=== PATIENT | female | born 1940 | race Caucasian/White ===

== ENCOUNTER 2016-10-26 20:00 | Observation (INO) | payer BC ==
--- NOTE | ~2016-10-26 | DS ---
Discharge Summary [facility] [address] [place]. [address] NAME: VIDAL CARL : 39 STATUS : ADM Crystal PAT#: [id number] AGE: 76 ADM/REG DATE : 10/26/16 MR#: [id number] REPORT SERV DATE: 10/28/16 DICTATED BY: VIC SAMPSON DATE: 10/28/16 REPORT STATUS : Draft TRANSCRIBED BY: MODL DATE: 10/28/16 ADMISSION DATE: 10/26/2016 DISCHARGE DATE: 10/28/2016 DIAGNOSES ON ADMISSION: 1. Neck pain, atypical chest pain on both sides of the chest. 2. Diabetes. 3. Situational depression. 4. Hypertension. DIAGNOSES ON DISCHARGE: 1. Atypical chest pain, present on admission, currently resolved. No evidence of chest pain. Jaw pain, now resolved, was related to recent 30 teeth extractions. Currently completely chest pain-free. 2. Diabetes mellitus type 2, controlled. 3. Hypothyroidism, controlled, on replacement. 4. Hypertension, controlled. 5. Situational depression/grief because of recent in the family. CONSULTANTS ON THE CASE: Product Management Analyst, Dr. Mckeon. IMAGING STUDIES: 1. Nuclear stress test negative for ischemia, low-risk. 2. Echocardiogram: Ejection fraction 60%. Normal echocardiogram. No valvular heart disease. HISTORY OF PRESENT ILLNESS: Briefly, this is a very pleasant 76-year-old female who was admitted by Dr. Jenkins for atypical neck discomfort and chest discomfort as well as bilateral jaw discomfort. Pain in her chest was on both sides and it was sharp. It has resolved next day as well as she said that it is most likely related to her jaw pain secondary to recent teeth extractions. She had 30 teeth extracted at once by dentist. She was doing well. She had a normal stress test as well as normal echocardiogram. Her bilateral lower extremity duplex ultrasound was negative for DVT and her oxygenation on room air was 96 and 97 on room air as well as she did not have any shortness of breath. She was doing very well. Blood pressure was 140/64, temperature 97.8, heart rate 63 to 64, respiratory rate 16, and oxygen saturation 96% on room air. She was doing very well. She did not have any chest pain, she was ready to be discharged, as well as diabetes mellitus was very well controlled. DISCHARGE DIAGNOSES: 1. Noncardiac chest pain, present on admission, resolved, likely related to teeth pain. 2. Diabetes, controlled. 3. Hypertension, controlled. 4. Grief because of the recent in the family, doing well. The patient will be discharged today and she will follow up with her primary care provider, nurse practitioner Brandi Suh. Everything was discussed with the patient and her sister. Discharge Summary [address] [facility] [place] [address] NAME: VIDAL CARL : 39 STATUS : ADM Crystal PAT#: [id number] AGE: 76 ADM/REG DATE : 10/26/16 MR#: [id number] REPORT SERV DATE: 10/28/16 DICTATED BY: VIC SAMPSON DATE: 10/28/16 REPORT STATUS : Draft TRANSCRIBED BY: MATT DATE: 10/28/16 This was observational discharge. I spent 45 minutes on discharge. MG/MATT Vic Sampson M.D. / [id number] CC: Mary Ann Bullard M.D.
--- NOTE | ~2016-10-26 | HP ---
History And Physical [id number] [place]. [address] NAME: VIDAL CARL : 39 STATUS : ADM Crystal PAT#: [id number] AGE: 76 ADM/REG DATE : 10/26/16 MR#: [id number] REPORT SERV DATE: 10/27/16 DICTATED BY: ALICIA JENKINS DATE: 10/27/16 REPORT STATUS : Draft TRANSCRIBED BY: MATT DATE: 10/27/16 DATE OF ADMISSION: 10/26/2016 CHIEF COMPLAINT: Chest pain, neck pain for multiple days. Transfer from [place]. HISTORY OF PRESENT ILLNESS: The patient is a 76-year-old female with past medical history of breast cancer, leg cancer, diabetes, hypertension, thyroid disease, who presents after having chest discomfort radiating to left arm, back, neck and occasional jaw line over the last 4- 5 days, not worsened, that has been dull, moderate severity with tingling type feeling. Does not have any relationship with exertion, relieved with rest. The patient reports that she has had tingling episodes of the jaw since removal of all of her teeth approximately couple weeks ago, but neck and chest dull pain has been going on for few days. There is no associated nausea, vomiting, or diarrhea. Does have overall slight weakness. No improving or worsening symptoms appreciated. Symptoms again began a few days ago and has been fairly constant and the patient comes in at the insistence of her sister. REVIEW OF SYSTEMS: A 10-point review of systems negative for that noted in the HPI. PAST MEDICAL HISTORY: Breast cancer, leg cancer, diabetes, hypertension, thyroid. SURGICAL HISTORY: Hysterectomy, eye surgery and removal of all teeth recently. ALLERGIES: NO KNOWN DRUG ALLERGIES. HOME MEDICATIONS: Artificial Tears, aspirin, vitamin D3, Lasix p.r.n. Neurontin, Levemir, Synthroid, Cozaar, metformin, Prilosec, Zocor, oxybutynin, metoprolol, Prilosec, Victoza. SOCIAL HISTORY: No smoking, alcohol, or illicits. 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 FAMILY HISTORY: Heart disease, cancer, diabetes, stroke. PHYSICAL EXAMINATION: VITAL SIGNS: Pulse 51, O2 sats 94% on room air. Weight 96.10 kg, blood pressure is 180s over 80s, O2 saturations 95% on room air. GENERAL: No acute distress. Calm, pleasant, well developed, well nourished. HEAD: Normocephalic, atraumatic. EYES: No scleral icterus. EOMI. ENT: Nares patent. Tongue midline. Moist mucous membranes. NECK: No JVD. Supple. No cervical tenderness or point tenderness on cervical spinal exam. LYMPH: No cervical or supraclavicular lymphadenopathy. CHEST: Equal chest expansion. RESPIRATORY: Clear to auscultation. No wheezes, rales, or rhonchi. CV: Mildly bradycardic. No rubs or gallops. ABDOMEN: Soft, nontender, nondistended. Bowel sounds positive. Central obesity. History And Physical [address] [address] NAME: VIDAL CARL : 39 STATUS : ADM Cyrstal PAT#: [id number] AGE: 76 ADM/REG DATE : 10/26/16 MR#: [id number] REPORT SERV DATE: 10/27/16 DICTATED BY: ALICIA JENKINS DATE: 10/27/16 REPORT STATUS : Draft TRANSCRIBED BY: MODNoy DATE: 10/27/16 EXTREMITIES: Moves all extremities x4. 1+ bilateral edema. HEME: No bleeding or bruising. PSYCH: Appropriate mood and affect. NEURO: Moves all extremities x4. Normal vocal suman. Symmetrical strength in upper and lower extremities bilaterally. EKG: Sinus bradycardia. No acute ST changes. Rate of 55, QTc 443. LABS: INR 1.12. Troponins negative x2. CK-MB within normal limits. Blood sugar 172. WBC count 5.0, H and H 10.5 and 31.1, platelets 263. Sodium 138, CPK 52, potassium 4.2, chloride 103, bicarb 28, calcium 9.5, glucose 180, BUN and creatinine 11 and 1. LFTs within normal limits. T bilirubin 0.4. IMAGING STUDIES: Chest x-ray low lung wesley volumes, otherwise no acute cardiopulmonary findings. ASSESSMENT AND PLAN: 1. Atypical chest pain. 2. Diabetes type 2. 3. Hypothyroidism. 4. Hypertension. 5. Leg cramps. 6. Situational depression. 7. Reflux. PLAN: 1. For atypical chest pain, we will check troponins, EKG, echocardiogram, stress test. Does have neck cervical pain, but no reproducible pain on full range of motion of neck at this time. Negative workup may require either chest wall workup versus cervical workup, although no reproducible pains acutely at this time. Jaw pain may also be resultant of recent tooth extractions and possible tic douloureux nerve discomfort. The patient is currently on gabapentin. 2. Diabetes type 2. Hold metformin medication. Decrease dosing secondary to decreased p.o. intake. Reassess in a.m. Restarting home insulin medications and diabetic medications. 3. Hypothyroidism, on replacement. 4. Hypertension, on beta paula p.r.n. 5. Leg cramps on gabapentin. 6. Situational depression. The patient does live alone, but does have good family support. Situational depression secondary to recent loss of her daughter approximately 1-1/2 half years ago. 7. Reflux, on medications. All questions answered with the patient and family at bedside. History And Physical [address] [address] NAME: VIDAL CARL : 39 STATUS : ADM Crystal PAT#: [id number] AGE: 76 ADM/REG DATE : 10/26/16 MR#: [id number] REPORT SERV DATE: 10/27/16 DICTATED BY: ALICIA JENKINS DATE: 10/27/16 REPORT STATUS : Draft TRANSCRIBED BY: MATT DATE: 10/27/16 MALLORY/MATT Alicia Jenkins MD / [id number]
--- NOTE | ~2016-10-26 | CN ---
Consultation Report [facility] [address] [place]. [address] NAME: SALLY KAUFFMAN : 39 STATUS : ADM Crystal PAT#: [id number] AGE: 76 ADM/REG DATE : 10/26/16 MR#: [id number] REPORT SERV DATE: 10/27/16 DICTATED BY: CONG MCKEON DATE: 10/27/16 REPORT STATUS : Draft TRANSCRIBED BY: MATT DATE: 10/27/16 CONSULTATION DATE OF CONSULTATION: Sally Kauffman is a 76-year-old female, who is transferred here with chest discomfort. HISTORY OF PRESENT ILLNESS: Mrs. Sally Kauffman has a previous history of diabetes, hypertension, and was seen with chest discomfort in 2011 and at that time, had mild nonobstructive coronary artery disease by cardiac catheterization. Wednesday, she was having her usual afternoon with low-level exercise and developed chest discomfort. She said it was across her chest that has been primarily in her neck. There was no associated nausea, vomiting, diaphoresis, shortness breath, palpitations, or presyncope. It persisted and got worse until yesterday when she saw her doctor. He noticed the blood pressure was elevated, and he gave her some nitroglycerin which improved the discomfort and blood pressure. The discomfort did have a strong pleuritic component to it. She was not significantly short of breath, however. REVIEW OF SYSTEMS: No previous exertional chest discomfort, symptoms of congestive heart failure, PND, CINTRON, lower extremity edema, change in weight, change in bowel habits, rash, fever, chills. Rest is negative. PAST MEDICAL HISTORY: 1. Insulin-dependent diabetes. 2. Nonobstructive coronary artery disease. 3. Chronic diastolic dysfunction. 4. Hypothyroidism, on replacement. 5. Breast cancer with metastatic disease in the past with lower extremity. SOCIAL HISTORY: She does not drink or smoke. 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 She does moderate walking. FAMILY HISTORY: Significant for coronary artery disease. PHYSICAL EXAMINATION: VITAL SIGNS: Blood pressure is 153/69, pulse is 50. GENERAL: Resting comfortably, nutritional status appears adequate. EYES: PERRLA. LUNGS: No labored use of accessory muscles. Without rales or wheezes. COR: PMI is not displaced. No thrills or heaves. NL S1 and S2. No S3, murmur, click or rub. PULSES: Carotids without bruits. ABD: +BS, nontender. EXT: No cyanosis, clubbing or edema. Consultation Report [place] [id number] [facility] [place]. [address] NAME: SALLY KAUFFMAN : 39 STATUS : ADM Crystal PAT#: [id number] AGE: 76 ADM/REG DATE : 10/26/16 MR#: [id number] REPORT SERV DATE: 10/27/16 DICTATED BY: CONG MCKEON DATE: 10/27/16 REPORT STATUS : Draft TRANSCRIBED BY: MATT DATE: 10/27/16 SKIN: No petechiae. NEURO: Alert and oriented. Does not appear anxious or depressed. LABORATORY EVALUATION: Cardiac enzymes are negative. EKG shows sinus tachycardia without acute changes. D-dimer is pending. ASSESSMENT: At this time, the discomfort is somewhat atypical, but she does have significant risk factors. A nuclear stress test has been ordered for the morning. MENDOZA/MATT Cong Mckeon M.D. / [id number] CC: Mary Ann Bullard RUTH
[~2016-10-26 20:00] MED LIST: ASA5GR PO; CLEOCIN300 MG PO; COZ50 PO; DIABETA5 PO; EVISTA60 PO; IBU800 PO; KLONO5 PO; KLOR-CON 1010 MEQ PO; NOVOLOGMIX SC; ONGLYZA5 MG PO; PRILO PO; SYNTHROID200 MCG PO
[2016-10-26] MEDS ORDERED: ASA5GR PO (21:04)
[2016-10-26] MEDS ORDERED: GLUCPH PO (21:05)
[2016-10-26] MEDS ORDERED: OXYBUTYNIN PO (21:05)
[2016-10-26] MEDS ORDERED: SYNTHROID137 MCG PO (21:06)
[2016-10-26] MEDS ORDERED: ZOCOR40 PO (21:06)
[2016-10-26] MEDS ORDERED: METOPROLOL 25MG PO (21:06)
[2016-10-26] MEDS ORDERED: NEUR100 PO (21:06)
[2016-10-26] MEDS ORDERED: PRILOSEC40 MG PO (21:07)
[2016-10-26] MEDS ORDERED: L20 PO (21:07)
[2016-10-26] MEDS ORDERED: COZAAR100 MG PO (21:07)
[2016-10-26] MEDS ORDERED: TEARS PURE OPH (21:08)
[2016-10-26] MEDS ORDERED: POTASSIUM RX PO (21:08)
[2016-10-26] MEDS ORDERED: LEVEMIR SC (21:09)
[2016-10-26] MEDS ORDERED: VITAMIN D31000 UNIT PO (21:10)
[2016-10-26] MEDS ORDERED: VICTOZA INJECTION SC (21:10)
[2016-10-26] MEDS ORDERED: MAXIMUM D3 PO (21:11)
[2016-10-26 23:05] LABS: BASOPHILS 0.3 %; BASOPHILS ABSOLUTE 0.02 10/3/uL (0.0-0.16); EOSINOPHILS 3.3 %; EOSINOPHILS ABSOLUTE 0.19 10/3/uL (0.0-0.53); HEMOGLOBIN 10.2 g/dL (12.0-16.0); IMMATURE GRANULOCYTES 0.2 %; IMMATURE GRANULOCYTES ABSOLUTE 0.01 10/3/uL (0.0-0.11); LYMPHOCYTES 31.3 %; LYMPHOCYTES ABSOLUTE 1.79 10/3/uL (0.67-4.30); MEAN CORPUS HGB CONC 32.9 g/dL (32.0-36.0); MEAN CORPUSCULAR HEMOGLOB 30.6 pg (26.0-34.0); MEAN CORPUSCULAR VOLUME 93.1 fL (80-100); MEAN PLATELET VOLUME 10.3 fL (9.2-13.0); MONOCYTES 8.9 %; MONOCYTES ABSOLUTE 0.51 10/3/uL (0.21-1.20); PLATELET COUNT 237 10/3/uL (150-400); RBC DISTRIBUTION WIDTH 13.3 % (12.0-16.0); RED CELL COUNT 3.33 10/6/uL (4.0-5.6); WHITE BLOOD CELLS 5.7 10/3/uL (4.5-10.5)
[2016-10-26 23:08] LABS: MANUAL DIFF NO %
[2016-10-26 23:29] LABS: ALBUMIN 3.2 G/DL (3.5-5.0); ALKALINE PHOSPHATASE 40 U/L (45-117); CHLORIDE, SERUM 105 MMOL/L (96-112); CO2 (CARBON DIOXIDE) 27 MMOL/L (24-34); CREATININE 1.14 MG/DL (0.55-1.02); GFR AFRICAN AMERICAN 54 ML/MIN (>=60); GFR NON AFRICAN AMERICAN 46 ML/MIN (>=60); GLOBULIN 3.2 G/DL (2.5-4.1); PHOSPHORUS, SERUM 3.3 MG/DL (2.5-4.5); SGOT(AST) 31 U/L (5-40); SGPT(ALT) 35 U/L (5-65); SODIUM, SERUM 141 MMOL/L (135-148); TOTAL BILIRUBIN 0.4 MG/DL (0-1.2); TOTAL PROTEIN 6.4 G/DL (6.0-8.5); TROPONIN I <0.02 NG/ML (<0.05)
[2016-10-26 23:31] LABS: BUN (BLOOD UREA NITROGEN) 12 MG/DL (6-23); GLUCOSE, SERUM 174 MG/DL (60-99)
[2016-10-27] MEDS ORDERED: DITRO5 PO (10:04)
[2016-10-27] MEDS ORDERED: LOP25 PO (10:04)
[2016-10-27] MEDS ORDERED: KLOR-CON M1010 MEQ PO (10:05)
[2016-10-28 09:37] LABS: BASOPHILS 0.5 %; BASOPHILS ABSOLUTE 0.02 10/3/uL (0.0-0.16); EOSINOPHILS 3.5 %; EOSINOPHILS ABSOLUTE 0.15 10/3/uL (0.0-0.53); HEMOGLOBIN 10.6 g/dL (12.0-16.0); IMMATURE GRANULOCYTES 0.2 %; IMMATURE GRANULOCYTES ABSOLUTE 0.01 10/3/uL (0.0-0.11); LYMPHOCYTES 34.1 %; LYMPHOCYTES ABSOLUTE 1.47 10/3/uL (0.67-4.30); MEAN CORPUS HGB CONC 33.1 g/dL (32.0-36.0); MEAN CORPUSCULAR HEMOGLOB 30.5 pg (26.0-34.0); MEAN CORPUSCULAR VOLUME 92.2 fL (80-100); MEAN PLATELET VOLUME 9.8 fL (9.2-13.0); MONOCYTES 10.2 %; MONOCYTES ABSOLUTE 0.44 10/3/uL (0.21-1.20); NEUTROPHILS 51.5 %; NEUTROPHILS ABSOLUTE 2.22 10/3/uL (2.02-8.40); PLATELET COUNT 251 10/3/uL (150-400); RBC DISTRIBUTION WIDTH 13.2 % (12.0-16.0); RED CELL COUNT 3.47 10/6/uL (4.0-5.6); WHITE BLOOD CELLS 4.3 10/3/uL (4.5-10.5)
[2016-10-28 09:43] LABS: MANUAL DIFF NO %
[2016-10-28 09:50] LABS: BUN (BLOOD UREA NITROGEN) 14 MG/DL (6-23); CHLORIDE, SERUM 106 MMOL/L (96-112); CO2 (CARBON DIOXIDE) 25 MMOL/L (24-34); CREATININE 1.07 MG/DL (0.55-1.02); GFR AFRICAN AMERICAN 58 ML/MIN (>=60); GFR NON AFRICAN AMERICAN 50 ML/MIN (>=60); GLUCOSE, SERUM 145 MG/DL (60-99); POTASSIUM, SERUM 4.1 MMOL/L (3.5-5.3); SODIUM, SERUM 141 MMOL/L (135-148)
== END 2016-10-28 13:46 | disposition home or self-care (01) ==
LOC: 5NO 20:00
PROVIDERS: Hospitalist; Student in an Organized Health Care Education/Training Program
DX: R07.89 Other chest pain (principal); I10 Essential (primary) hypertension; E11.9 Type 2 diabetes mellitus without complications; E03.9 Hypothyroidism, unspecified; F32.9 Major depressive disorder, single episode, unspecified; E78.00 Pure hypercholesterolemia, unspecified; K21.9 Gastro-esophageal reflux disease without esophagitis; I25.10 Atherosclerotic heart disease of native coronary artery without angina pectoris; Z90.710 Acquired absence of both cervix and uterus; Z98.890 Other specified postprocedural states; Z79.82 Long term (current) use of aspirin; Z79.4 Long term (current) use of insulin; Z79.899 Other long term (current) drug therapy; Z90.49 Acquired absence of other specified parts of digestive tract
CPT/HCPCS: 71020; 78452; 80048; 80053; 82962; 83735; 83880; 84100; 84443; 84484; 85025; 85379; 93005; 93017; 93306; 93970; 96372; 96374; A9270-GY; A9502; G0378; J0153; J0360